=== PATIENT | male | born 1965 | race Hispanic/Latino ===

== ENCOUNTER 2017-09-21 08:49 | Outpatient (CLI) | payer BC ==
--- NOTE | 2017-09-23 07:48 | Nuclear Medicine Report ---
BONE SCAN: History: Calculus of kidney, evaluate skeletal system. Technique: 25 mCi of technetium 99m MDP was administered intravenously. Anterior and posterior whole-body imaging was performed after 3 hours. After injection of isotope, gamma camera imaging of the bony system was done. There is a normal uptake of isotope throughout the bony structures without areas of significantly increased or decreased uptake. Mild degenerative uptake is noted in the shoulders, sternoclavicular joints and ankles. Mild contamination in the peritoneum. Normal uptake in the urinary system is seen. IMPRESSION: Unremarkable bone scan. Mild degenerative uptake as described.
== END 2017-09-21 08:50 | disposition home or self-care (01) ==
LOC: NM 08:49
PROVIDERS: ATTEND Urology
DX: K66.8 Other specified disorders of peritoneum (principal); N20.0 Calculus of kidney
CPT/HCPCS: 78306; A9503

== ENCOUNTER 2017-10-06 10:29 | Day surgery (SDC) | payer BC ==
[2017-10-06] MEDS ORDERED: ZOFRAN IV PRN (12:51)
[2017-10-06] MEDS ORDERED: PERCOCET 5/325 PO PRN (12:51)
[2017-10-06] MEDS ORDERED: MORPHINE IV PRN (12:51)
--- NOTE | 2017-10-06 12:51 | Anesthesia Day of Surgery ---
Anesthesia Day of Surgery - Day of Surgery Patient Examined: Yes Patient H&P Reviewed: Yes Patient is NPO: Yes
--- NOTE | 2017-10-06 12:51 | Anesthesia Consultation ---
Anesthesia Consult and Med Hx Date of service: 10/06/17 - Airway Anesthetic Teeth Evaluation: Good ROM Head & Neck: Adequate Mental/Hyoid Distance: Adequate Mallampati Class: Class I Intubation Access Assessment: Good - Pulmonary Exam CTA: Yes - Cardiac Exam Cardiac Exam: RRR - Pre-Operative Health Status ASA Pre-Surgery Classification: ASA2 Proposed Anesthetic Plan: General - Pulmonary Hx Smoking: No Hx Sleep Apnea: No (SOFI PRE SCREEN LOW RISK) - Cardiovascular System Hx Hypertension: No - Endocrine Hx Cirrhosis: No (Irritable Bowel Syndrom) - Other Systems Hx Cancer: No - Additional Comments Anesthesia Medical History Comments: Gout, Hypercholesterolemia
[2017-10-06] MEDS ORDERED: VERSED IV NR (13:00)
[2017-10-06] MEDS ORDERED: PEPCID IV NR (13:00)
[2017-10-06] MEDS ORDERED: LACTATED RINGERS 1,000 ML IV SCH (13:00)
[2017-10-06] MEDS ORDERED: ANCEF/STERILE WATER 2 GM/20 ML IV NR (15:00)
[2017-10-06] MEDS ORDERED: SUBLIMAZE ONE (16:17)
[2017-10-06] MEDS ORDERED: DIPRIVAN 10 MG/ML IV ONE (16:17)
[2017-10-06] MEDS ORDERED: XYLOCAINE MPF 2% ONE (16:18)
[2017-10-06] MEDS ORDERED: DECADRON ONE (17:22)
[2017-10-06] MEDS ORDERED: ZOFRAN ONE (17:23)
--- NOTE | 2017-10-06 18:03 | Post Anesthesia Evaluation ---
- Post Anesthesia Evaluation Patient Participated: Yes Airway Patent: Yes Stable Respiratory Function: Yes Temp > 96.8F: Yes Pain Manageable: Yes Adequeate Hydration: Yes Anesthesia Complications: No
--- NOTE | 2017-10-06 18:08 | Short Stay Summary ---
Short Stay Documentation Date of service: 10/06/17 - History H&P: obtained from office - Allergies and Medications Current Medications: Allergies No Known Allergies Allergy (Verified 09/28/17 14:10) Home Medications Medication Instructions Recorded Confirmed Last Taken Type Allopurinol 150 mg PO DAILY 09/28/17 10/06/17 10/04/17 History Aspirin [Lo-Dose Aspirin EC] 81 mg PO DAILY 09/28/17 10/06/17 09/29/17 History AtorvaSTATin [Lipitor] 40 mg PO QHS 09/28/17 10/06/17 10/04/17 History Multivit-Min/FA/Lycopen/Lutein 1 each PO DAILY 09/28/17 09/28/17 09/29/17 History [Centrum Silver Tablet] [place]-3/Dha/Epa/Fish Oil [Fish Oil 1,000 mg PO DAILY 09/28/17 09/28/17 09/29/17 History 1,000 mg Softgel] Active Medications Cefazolin Sodium (Ancef/Sterile Water 2 Gm/20 Ml) 2 gm IV PREOP NR Stop: 10/06/17 23:59 Famotidine (Pepcid) 20 mg IV PREOP NR Stop: 10/06/17 23:00 Last Admin: 10/06/17 13:20 Dose: 20 mg Lactated Ringer's (Lactated Ringers) 1,000 mls @ 100 mls/hr IV DIRECT MEAGHAN Last Admin: 10/06/17 13:18 Dose: 100 mls/hr Midazolam HCl (Versed) 2 mg IV PREOP NR Stop: 10/06/17 23:59 Last Admin: 10/06/17 13:20 Dose: 2 mg Morphine Sulfate (Morphine) 2 mg IV Q10MIN PRN PRN Reason: Pain, Moderate (4-6) Ondansetron HCl (Zofran) 4 mg IV ONCE PRN PRN Reason: Nausea And Vomiting Oxycodone/Acetaminophen (Percocet 5/325) 1 tab PO ONCE PRN PRN Reason: Pain, Moderate (4-6) - Brief post op/procedure progress note Date of procedure: 10/06/17 Pre-op diagnosis: right reanal stone mult lgst 7 and 8 mm Post-op diagnosis: same Procedure: rt renal eswl Anesthesia: GETA Findings: eswl of the right mid stone about 7-8mm Surgeon: GELACIO COVINGTON Estimated blood loss: minimal Pathology: none Condition: stable - Hospital course Hospital course: orpacuhome - Disposition Condition at discharge: Good Disposition: DC-01 TO HOME OR SELFCARE Short Stay Discharge Plan Activity: advance as tolerated Diet: advance as tolerated Follow up with: GELACIO COVINGTON MD [Staff Physician] - 7 Days
[2017-10-06 18:41] VITALS: BP 129/74
--- NOTE | 2017-11-04 10:52 | Operative Report ---
PREOPERATIVE DIAGNOSIS: Right renal stones, multiple, largest 7-8 mm. POSTOPERATIVE DIAGNOSIS: Right renal stones, multiple, largest 7-8 mm. PROCEDURE: Right renal ESWL. ANESTHESIA: General. ESTIMATED BLOOD LOSS: Minimal. SURGEON: Raúl Garcia M.D. PATHOLOGY: None. CONDITION: Stable. IMPLANT: None. FINDINGS: ESWL of a right mid stone about 7-8 mm one at likely highest risk for obstruction. CLINICAL INDICATIONS: Counseled RCBA, antibiotics, SCDs. DESCRIPTION OF PROCEDURE: The patient was transferred to the OR suite in supine position, anesthesia begun. Biplanar fluoroscopy was used to target the stone on the right side with an F2. There was good visualization, intermittent repositioning as necessary. A total of 2500 shocks at a maximum of 5.0 kilovolts was performed. At the end of the procedure, there was decreased density of the stone. The patient awakened and transferred to the PACU in good and stable condition. JOB# [id number] ATS/NTS
== END 2017-10-06 19:35 | disposition home or self-care (01) ==
LOC: OR 10:29
PROVIDERS: ATTEND Urology
DX: N20.0 Calculus of kidney (principal); M10.9 Gout, unspecified; E78.00 Pure hypercholesterolemia, unspecified; K58.9 Irritable bowel syndrome, unspecified
CPT/HCPCS: 50590; J0690; J1100; J2250; J2405; J2704; J3010; J7120